=== PATIENT | male | born 1990 | race American Indian/Alaskan Native ===

== ENCOUNTER 2019-06-22 10:44 | Emergency (ER) | payer SELFPAY ==
[2019-06-22 10:50] VITALS: BP 126/68; PULSE 55; TEMP 97.8; BMI 27.8
--- NOTE | 2019-06-22 11:49 | PDOC ---
History of Present Illness - General Chief Complaint: Pain Stated Complaint: PAIN Time Seen by Provider: 06/22/19 11:11 History Source: Patient Exam Limitations: No Limitations Past History - Past Medical History Allergies/Adverse Reactions: Allergies Allergy/AdvReac Type Severity Reaction Status Date / Time No Known Allergies Allergy Verified 06/22/19 10:50 Home Medications: Ambulatory Orders Clotrimazole [Lotrimin -] 1 applic TP BID #1 tube 06/22/19 COPD: No - Suicide/Smoking/Psychosocial Hx Smoking History: Never smoked *Physical Exam - Vital Signs Last Vital Signs Temp Pulse Resp BP Pulse Ox 97.8 F 55 L 18 126/68 99 06/22/19 10:47 06/22/19 10:47 06/22/19 10:47 06/22/19 10:47 06/22/19 10:47 - Physical Exam General Appearance: No: Apparent Distress Gastrointestinal/Abdominal: positive: Normal Bowel Sounds, Soft. negative: Tender, Distended, Guarding, Rebound Male Genitalia: positive: other (erythematous, scaly rash along B/L inguinal region). negative: discharge, testicular tenderness, epididymus tender Integumentary: positive: Normal Color Neurologic: positive: Alert, Normal Mood/Affect Medical Decision Making - Medical Decision Making 29 y/o M with no sig pmh presents with "inflammation" around B/L inguinal region which is itchy for >10 days. Denies fever, sob, cp, abd pain, n/v, testicular pain, penile discharge. Is not sexually active. Denies hx of STDs. Patient with tinea cruris 06/22/19 11:44 *DC/Admit/Observation/Transfer Diagnosis at time of Disposition: Tinea cruris - Discharge Dispostion Disposition: HOME Condition at time of disposition: Stable Decision to Admit order: No - Prescriptions Prescriptions: Clotrimazole [Lotrimin -] 1 applic TP BID #1 tube - Referrals Referrals: Ze Waddell DO [Primary Care Provider] - 2 Days - Patient Instructions Printed Discharge Instructions: Tinea Cruris: LELAND Briceno Itch Additional Instructions: Thank you for choosing [facility]. It was a pleasure taking care of you. Apply cream to site of rash as directed Keep site dry and clean Avoid wearing tight clothing Follow-up with your doctor in 2 days Return to the Emergency Department if your symptoms worsen or persist or have other concerning symptoms. - Post Discharge Activity
== END 2019-06-22 11:59 | disposition home or self-care (01) ==
LOC: JERFT 10:44
DX: B35.6 Tinea cruris (principal)
CPT/HCPCS: 99282-25